=== PATIENT | female | born 2000 | race Caucasian/White ===

== ENCOUNTER 2025-02-02 10:11 | Emergency (ER) | payer BC, OTHER ==
[~2025-02-02] VITALS: Ht 157.4 cm; Wt 131.5 kg
[2025-02-02] MEDS ORDERED: AVPAK AZITHROM250 M1 PO (10:24)
== END 2025-02-02 10:32 | disposition home or self-care (01) ==
LOC: ED 10:11
DX: J32.9 Chronic sinusitis, unspecified (principal); Z88.0 Allergy status to penicillin